=== PATIENT | male | born 1990 | race Caucasian/White ===

== ENCOUNTER 2018-04-03 14:10 | Emergency (ER) | payer OTHER ==
[2018-04-03] MEDS ORDERED: FLUORESCEIN SODIUM 1 MG/WRAP ONE (14:37)
[2018-04-03] MEDS ORDERED: TETRACAINE HCL 0.5% 2ML OPTH ONE (14:37)
--- NOTE | 2018-04-03 14:55 | EDPHYS ---
Physician Documentation [facility] Name: Grzegorz Nelson Age: 27 yrs Sex: Male : 1990 Arrival Date: 04/03/2018 Time: 14:15 Bed 27 Private MD: ED Physician Nadir Redman HPI: 04/03 14:51 This 27 yrs old Male presents to ER via Ambulatory with complaints of Foreign ps1 Body In Eye. 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 Grabbed underside to assist in getting ps1 out from underneath. Debris fell from underside of car and went into eye. Washed at scene for 30 min, now has FB sensation in left eye. Vision a little blurry. No pain. Concern for FB. Visual acuity intact. . Historical: - Allergies: 14:22 No Known Allergies; tw2 - Home Meds: 14:22 None [Active]; tw2 - PMHx: 14:22 None; tw2 - PSHx: 14:22 None; tw2 - Immunization history:: Adult Immunizations up to date, Adult Immunizations Last tetanus immunization: up to date. - Social history:: Smoking status: Patient uses tobacco products, chewing tobacco. - Ebola Screening: : Patient denies travel to an Ebola-affected area in the 21 days before illness onset. ROS: 14:51 Constitutional: Negative for fever, chills, and weight loss, Cardiovascular: Negative ps1 for chest pain, palpitations, and edema, Respiratory: Negative for shortness of breath, cough, wheezing, and pleuritic chest pain, Abdomen/GI: Negative for abdominal pain, nausea, vomiting, diarrhea, and constipation, Back: Negative for injury and pain, MS/Extremity: Negative for injury and deformity, Skin: Negative for injury, rash, and discoloration, Neuro: Negative for headache, weakness, numbness, tingling, and seizure. 14:51 Eyes: Positive for blurry vision, foreign body sensation. Exam: 14:51 Constitutional: This is a well developed, well nourished patient who is awake, alert, ps1 and in no acute distress. Head/Face: Normocephalic, atraumatic. ENT: Nares patent. No nasal discharge, no septal abnormalities noted. Tympanic membranes are normal and external auditory canals are clear. Oropharynx with no redness, swelling, or masses, exudates, or evidence of obstruction, uvula midline. Mucous membranes moist. Neck: Trachea midline, no thyromegaly or masses palpated, and no cervical lymphadenopathy. Supple, full range of motion without nuchal rigidity, or vertebral point tenderness. No Meningismus. Chest/axilla: Normal chest wall appearance and motion. Nontender with no deformity. No lesions are appreciated. Cardiovascular: Regular rate and rhythm. No gallops, murmurs, or rubs. Normal PMI, no JVD. No pulse deficits. Respiratory: Lungs have equal breath sounds bilaterally, clear to auscultation and percussion. No rales, rhonchi or wheezes noted. No increased work of breathing, no retractions or nasal flaring. Abdomen/GI: Soft, non-tender, with normal bowel sounds. No distension or tympany. No guarding or rebound. No evidence of tenderness throughout. Skin: Warm, dry with normal turgor. Normal color with no rashes, no lesions, and no evidence of cellulitis. 14:51 Eyes: Pupils: equal, round, and reactive to light and accomodation, Corneas: abrasion, that is small, on the left, at 6 o'clock, a fluorescein strip employed to appreciate the findings. Vital Signs: 14:21 BP 155 / 94; Pulse 76; Resp 17; Temp 98.1(O); Pulse Ox 99% on R/A; Weight 104.33 kg tw2 (R); Height 6 ft. 2 in. (187.96 cm); Pain 8/10; 14:21 Body Mass Index 29.53 (104.33 kg, 187.96 cm) tw2 MDM: 14:54 Patient medically screened. ps1 14:55 Data reviewed: vital signs, nurses notes, and as a result, I will discharge patient. ps1 Administered Medications: No medications were administered Disposition: 04/03/18 14:54 Discharged to Home. Impression: Injury of conjunctiva and corneal abrasion without foreign body, left eye. - Condition is Stable. - Discharge Instructions: Corneal Abrasion, [id number]. - Prescriptions for Erythromycin 5 mg/gram (0.5 %) Ophthalmic Ointment - apply 1 centimeter by OPHTHALMIC route 2-3 times daily for 7 days; 1 tube. - Work release form, Medication Reconciliation Form, Thank You Letter, Antibiotic Education, Prescription Opioid Use form. - Follow up: Emergency Department; When: As needed; Reason: Worsening of condition. - Problem is new. - Symptoms have improved. Signatures: Nicolas Nash RN RN sg Negrita Santiago RN RN tw2 Nadir Redman MD MD ps1 Corrections: (The following items were deleted from the chart) 15:02 14:54 04/03/2018 14:54 Discharged to Home. Impression: Injury of conjunctiva and sg corneal abrasion without foreign body, left eye. Condition is Stable. Forms are Work release form, Medication Reconciliation Form, Thank You Letter, Antibiotic Education, Prescription Opioid Use. Follow up: Emergency Department; When: As needed; Reason: Worsening of condition. Problem is new. Symptoms have improved. ps1
--- NOTE | 2018-04-03 14:55 | ER ---
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 Transition of care: patient was not received from another setting of care. Onset of symptoms was April 03, 2018. Risk Assessment: Do you want to hurt yourself or someone else? Patient reports no desire to harm self or others. Initial Sepsis Screen: Does the patient meet any 2 criteria? No. Patient's initial sepsis screen is negative. Does the patient have a suspected source of infection? No. Patient's initial sepsis screen is negative. Care prior to arrival: None. 14:20 Method Of Arrival: Ambulatory tw2 14:20 Acuity: MARIBEL 4 tw2 Triage Assessment: 14:22 General: Appears in no apparent distress. Behavior is calm, cooperative. Pain: tw2 Complains of pain in left eye. Historical: - Allergies: 14:22 No Known Allergies; tw2 - Home Meds: 14:22 None [Active]; tw2 - PMHx: 14:22 None; tw2 - PSHx: 14:22 None; tw2 - Immunization history:: Adult Immunizations up to date, Adult Immunizations Last tetanus immunization: up to date. - Social history:: Smoking status: Patient uses tobacco products, chewing tobacco. - Ebola Screening: : Patient denies travel to an Ebola-affected area in the 21 days before illness onset. Screenin:28 Abuse screen: Denies threats or abuse. Denies injuries from another. Nutritional sg screening: No deficits noted. Tuberculosis screening: No symptoms or risk factors identified. Never had TB. Fall Risk None identified. Assessment: 14:28 General: Appears in no apparent distress. uncomfortable, well groomed, well developed, sg well nourished, Behavior is calm, cooperative, appropriate for age. Pain: Complains of pain in left eye Quality of pain is described as burning, aching. Neuro: Level of Consciousness is awake, alert, obeys commands, Oriented to person, place, time, situation, Clutch Inspector are equal bilaterally Moves all extremities. Full function Gait is steady, Speech is normal, Facial symmetry appears normal, Pupils are PERRLA. Cardiovascular: Capillary refill is brisk in bilateral fingers Patient's skin is warm and dry. Chest pain is denied. Respiratory: Airway is patent Respiratory effort is even, unlabored, Respiratory pattern is regular, symmetrical. GI: No signs and/or symptoms were reported involving the gastrointestinal system. : No signs and/or symptoms were reported regarding the genitourinary system. EENT: Eyes are tearing on left eye Sclera/Cornea are reddened in outer aspect of conjuctiva of left eye, iris of left eye and inner aspect of conjunctiva of left eye. Derm: Skin is pink, warm \T\ dry. Musculoskeletal: No signs and/or symptoms reported regarding the musculoskeletal system. Vital Signs: 14:21 BP 155 / 94; Pulse 76; Resp 17; Temp 98.1(O); Pulse Ox 99% on R/A; Weight 104.33 kg tw2 (R); Height 6 ft. 2 in. (187.96 cm); Pain 8/10; 14:21 Body Mass Index 29.53 (104.33 kg, 187.96 cm) tw2 ED Course: 14:15 Patient arrived in ED. mr 14:21 Triage completed. tw2 14:22 Arm band placed on. tw2 14:28 Nicolas Nash, RN is Primary Nurse. sg 14:28 Patient has correct armband on for positive identification. Bed in low position. Call sg light in reach. Side rails up X2. Pulse ox on. NIBP on. 14:31 Nadir Redman MD is Attending Physician. ps1 14:47 Assist provider with eye exam of left eye. using fluorescein stain, Performed by toni Redman MD Patient tolerated well. 15:04 Patient did not have IV access during this emergency room visit. sg Administered Medications: No medications were administered Outcome: 14:54 Discharge ordered by . ps1 15:02 Patient left the ED. sg 15:02 Discharged to home ambulatory, with family. sg 15:02 Condition: good 15:02 Discharge instructions given to patient, Instructed on discharge instructions, follow up and referral plans. medication usage, safety practices, Demonstrated understanding of instructions, follow-up care, medications, Prescriptions given X 1. Signatures: Nicolas Nash RN RN sg Edna Costa Tara, RN RN tw2 Nadir Redman MD MD ps1
== END 2018-04-03 15:02 | disposition home or self-care (01) ==
LOC: ER 14:10
DX: S05.02XA Injury of conjunctiva and corneal abrasion without foreign body, left eye, initial encounter (principal)
CPT/HCPCS: 99283